=== PATIENT | female | born 1950 | race Caucasian/White ===

== ENCOUNTER → 2023-06-16 | Outpatient (CLI) | payer MEDICARE ==
--- NOTE | 2023-06-16 21:52 | BD ---
EXAMINATION TYPE: Axial Bone Density DATE OF EXAM: 06/16/2023 CLINICAL HISTORY: 72 years old Female. ICD-10 CODE: Z78.0 ASYMPTOMATIC MENOPAUSAL STATE Height: 63.5in Weight: 134lb FRAX RISK QUESTIONS: Secondary Osteoporosis: RISK FACTORS HISTORY OF: Active: yes Postmenopausal woman: yes Take estrogen and/or progesterone medications: yes, none current How long: a couple years MEDICATIONS: Thyroid Medications: Which medication: Levothyroxine How Lon years Additional Medications: calcium Additional History: EXAM MEASUREMENTS: Bone mineral densitometry was performed using the [employer]. Bone mineral density as measured about the Lumbar spine is: ----- L1-L4(G/cm2): 1.590 T Score Values are as follows: ----- L1: 1.6 ----- L2: 3.8 ----- L3: 4.4 ----- L4: 3.5 ----- L1-L4: 3.4 Z Score Values are as follows: ----- L1: 3.5 ----- L2: 5.7 ----- L3: 6.3 ----- L4: 5.4 ----- L1-L4: 5.3 First dexa at [facility] Bone mineral density about the R hip (g/cm2): 0.908 Bone mineral density about the L hip (g/cm2): 0.920 T Score values are as follows: -----R Neck: -1.5 -----L Neck: -1.3 -----R Total: -0.8 -----L Total: -0.7 Z Score values are as follows: -----R Neck: 0.5 -----L Neck: 0.7 -----R Total: 1.0 -----L Total: 1.1 First dexa at [facility] FRAX%s: The graph provided illustrates a 10.9% chance for a major osteoporotic fx and a 2.3% chance f or the hips probability for fx in 10 years time. IMPRESSION: Osteopenia (T Score between -2.5 and -1). There is slightly increased risk of fracture and the patient may be considered for treatment. Re-Screen 2-5 years. NOTE: T-SCORE=SD OF THE YOUNG ADULT MEAN.
== END | disposition home or self-care (01) ==
LOC: RADBDWWP 14:38
PROVIDERS: ATTEND Obstetrics & Gynecology
DX: M85.89 Other specified disorders of bone density and structure, multiple sites (principal); Z78.0 Asymptomatic menopausal state
CPT/HCPCS: 77080

== ENCOUNTER → 2024-03-05 | Outpatient (CLI) | payer MEDICARE ==
--- NOTE | 2024-03-07 11:07 | MM ---
Reason for Exam: Screening (asymptomatic). Last mammogram was performed 1 year(s) and 1 month(s) ago. Patient History: Menarche at age 12. First Full-Term at age 17. Postmenopausal. Patient used Estrogen and Progesterone for 4 years. Maternal aunt had breast cancer. Paternal grandmother had breast cancer. Risk Values: Lois 5 year model risk: 1.2%. NCI Lifetime model risk: 2.5%. Prior Study Comparison: 10/14/2015 Bilateral Screening Mammogram, [facility]. 10/27/2017 Bilateral Screening Mammogram, [facility]. 12/04/2018 Bilateral Screening Mammogram, [facility]. 01/01/2020 Bilateral Screening Mammogram, [facility]. 01/19/2021 Bilateral Screening Mammogram, [facility]. 02/12/2022 Bilateral Screening Mammogram, [facility]. 02/14/2023 Bilateral Screening Mammogram, [facility]. Tissue Density: There are scattered areas of fibroglandular density. Findings: Analyzed By CAD. There is no suspicious group of microcalcifications or new suspicious mass in either breast. Overall Assessment: Negative, BI-RAD 1 Management: Screening Mammogram of both breasts in 1 year. . Patient should continue monthly self-breast exams. A clinical breast exam by your physician is recommended on an annual basis. This exam should not preclude additional follow-up of suspicious palpable abnormalities. Note on Lois scores and lifetime risk: 1. A Lois score greater than 3% is considered moderate risk. If this is the case, consider specialist referral to assess eligibility for a risk reducing agent. 2. If overall lifetime risk for the development of breast cancer is 20% or higher, the patient may qualify for future screening with alternating mammogram and breast MRI. Electronically signed and approved by: Anuel Garcia M.D. Radiologis
== END | disposition home or self-care (01) ==
LOC: RADMAMWWP 10:47
PROVIDERS: ATTEND Family Medicine
DX: Z12.31 Encounter for screening mammogram for malignant neoplasm of breast
CPT/HCPCS: 77063; 77067